=== PATIENT | male | born 1985 | race African-American/Black ===

== ENCOUNTER 2016-05-13 18:26 | Emergency (ER) | payer SELFPAY ==
[~2016-05-13] VITALS: Ht 167.6 cm; Wt 59.0 kg
[~2016-05-13 18:26] MED LIST: CYCL10TA2 PO; NAPR375T3 PO
[2016-05-13 18:52] VITALS: BP 140/74
[2016-05-13] MEDS ORDERED: PENI500T PO (19:07)
[2016-05-13] MEDS ORDERED: TRAM-29 PO (19:07)
--- NOTE | 2016-05-13 19:08 | PHYS DOC ---
Past Medical History Past Medical History: Asthma Past Surgical History: No Surgical History Smoking: Less than 1pk/day Alcohol Use: Occasionally Drug Use: None Adult General Chief Complaint Chief Complaint: DENTAL PROBLEM HPI HPI Patient is a 31 year old male who presents with left mandibular dental pain for 4 days. He reports facial swelling. He denies any fever. He has not taken any medications. He does not have a PCP. Review of Systems Review of Systems Constitutional: Denies fever or chills. [] Eyes: Denies change in visual acuity, redness, or eye pain. [] HENT: Denies ear pain, nasal congestion or sore throat. Reports left maneuver dental pain. Integument: Denies rash or skin lesions. [] Neurologic: Denies headache, focal weakness or sensory changes. [] Allergies Allergies Allergies Coded Allergies Type Severity Reaction Last Updated Verified No Known Drug Allergies 12/11/15 No Physical Exam Physical Exam Constitutional: Well developed, well nourished, no acute distress, non-toxic appearance. [] HENT: Normocephalic, atraumatic, bilateral external ears normal, oropharynx moist, no oral exudates, nose normal. Bilateral TMs without erythema or bulging. There is no posterior pharyngeal erythema or tonsillar edema. Tooth # 19 is carious and tender without surrounding gingival edema or dental abscess. Tooth #17 has mild surrounding gingival edema without abscess. Eyes: PERRLA, EOMI, conjunctiva normal, no discharge. [] Skin: Warm, dry, no erythema, no rash. [] Neurologic: Alert and oriented X 3, normal motor function, normal sensory function, no focal deficits noted. [] Psychologic: Affect normal, judgement normal, mood normal. [] Current Patient Data Vital Signs Vital Signs Date Time Temp Pulse Resp B/P Pulse Ox O2 Delivery O2 Flow Rate FiO2 05/13/16 18:52 98.1 55 18 99 Room Air 98.1 EKG EKG [] Radiology/Procedures Radiology/Procedures [] Course & Med Decision Making Course & Med Decision Making Pertinent Labs and Imaging studies reviewed. (See chart for details) [] Dragon Disclaimer Dragon Disclaimer This electronic medical record was generated, in whole or in part, using a voice recognition dictation system. Departure Departure Impression: Primary Impression: Dentalgia Disposition: 01 HOME, SELF-CARE Condition: STABLE Referrals: NO PCP (PCP) Patient Instructions: Dental Pain, [id number] Additional Instructions: Please complete all the prescribed antibiotics, even if you are feeling better. Please take the prescribed pain medication as instructed. Do not drive or operate heavy machinery while taking pain medication. Please follow-up with the dentist of your choice as soon as possible to have your teeth taken care of. Return to the emergency if you have any new or concerning symptoms. Scripts Penicillin V Potassium 500 Mg Tablet1 Tab PO TID #30 TAB Prov:AARON ROBLES 05/13/16 Tramadol Hcl (Ultram)50 Mg [id number] Mg PO Q6H PRN PAIN #20 TAB Prov:AARON ROBLES 05/13/16 AARON ROBLES May 13, 2016 19:08
== END 2016-05-13 19:11 | disposition home or self-care (01) ==
LOC: ER 18:26
DX: K02.9 Dental caries, unspecified (principal); J45.909 Unspecified asthma, uncomplicated; F17.210 Nicotine dependence, cigarettes, uncomplicated
CPT/HCPCS: 99283

== ENCOUNTER 2016-10-01 09:18 | Emergency (ER) | payer SELFPAY ==
[~2016-10-01] VITALS: Ht 167.6 cm; Wt 51.0 kg
[~2016-10-01 09:18] MED LIST changes: +PENI500T PO; +TRAM-48 PO
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
[2016-10-01 09:26] VITALS: BP 140/99
[2016-10-01] MEDS ORDERED: TRAM50TA PO (09:59)
== END 2016-10-01 10:09 | disposition home or self-care (01) ==
LOC: ER 09:18
DX: M79.604 Pain in right leg (principal); J45.909 Unspecified asthma, uncomplicated; M19.90 Unspecified osteoarthritis, unspecified site
CPT/HCPCS: 99283

== ENCOUNTER 2018-09-22 15:08 | Emergency (ER) | payer SELFPAY ==
[~2018-09-22 15:08] MED LIST changes: +NAPR-695 PO; -NAPR375T3 PO; +TRAM50TA PO
== END 2018-09-22 16:06 | disposition left against medical advice (07) ==
LOC: ER 15:08
DX: R42 Dizziness and giddiness (principal); Z53.21 Procedure and treatment not carried out due to patient leaving prior to being seen by health care provider